=== PATIENT | female | born 1965 | race Caucasian/White ===

== ENCOUNTER 2018-02-25 10:21 | Emergency (ER) | payer BC ==
[~2018-02-25] VITALS: Ht 175.3 cm; Wt 90.0 kg
[~2018-02-25 10:21] MED LIST: AMOXICILLIN500 MG PO; DESYREL50 MG/TAB PO; DIVALPROEX500 MG PO; FLONASE NASAL50 MCG; FLONASE NASAL50 MCG NAS; FLUOXETINE20 MG PO; HYDROCHLOROT25 MG; NO HOME MEDS; PREVACID30 M3 PO; PROZAC20 M1 PO; TOPAMAX100 MG PO; TRAZODONE150 MG PO; VENLAFAXINE37.5 M1 PO; VITAMIN B-625 MG PO; ZYRTEC10 MG PO; [UNRECOGNIZED DRUG - OTHER] PO
[2018-02-25] MEDS ORDERED: LISINOPRIL20 MG PO (10:36)
[2018-02-25] MEDS ORDERED: AMOXICILLIN500 MG PO (10:37)
[2018-02-25 11:21] LABS: HEMATOCRIT 43.2 % (37.0-47.0); HEMOGLOBIN 14.7 g/dl (12.0-16.0); IMMATURE GRANULOCYTES 0.4 % (0.0-1.0); MEAN CELL VOLUME 97.7 fL CALC (80.0-100.0); MEAN CORPUSCULAR HGB 33.3 pG CALC (26.0-32.0); NEUT# 5.73 thou/uL (2.00-7.15); RED BLOOD COUNT 4.42 mill/uL (4.20-5.60); RED CELL DISTRI WIDTH 13.8 % (11.5-15.5)
[2018-02-25] MEDS ORDERED: PREDNISONE10 MG PO (12:41)
[2018-02-25 12:50] VITALS: BP 158/100
== END 2018-02-25 12:50 | disposition home or self-care (01) | DRG 153 ==
LOC: ED 10:21
PROVIDERS: Family Medicine
DX: J30.9 Allergic rhinitis, unspecified (principal); F17.210 Nicotine dependence, cigarettes, uncomplicated; I10 Essential (primary) hypertension

== ENCOUNTER 2020-09-11 09:50 | Emergency (ER) | payer BC ==
[~2020-09-11] VITALS: Ht 175.3 cm; Wt 85.0 kg
[~2020-09-11 09:50] MED LIST changes: +LISINOPRIL20 MG PO; +PREDNISONE10 MG PO
[2020-09-11 12:35] VITALS: BP 138/76
== END 2020-09-11 12:43 | disposition home or self-care (01) | DRG 552 ==
LOC: ED 09:50
DX: M54.5 Low back pain (principal); M79.605 Pain in left leg; I10 Essential (primary) hypertension; F17.200 Nicotine dependence, unspecified, uncomplicated

== ENCOUNTER 2020-12-17 14:08 | Emergency (ER) | payer BC ==
[~2020-12-17] VITALS: Ht 175.3 cm; Wt 100.0 kg
[2020-12-17 15:07] LABS: HEMOGLOBIN 14.2 g/dl (12.0-16.0); IMMATURE GRANULOCYTES 0.5 % (0.0-5.0); MEAN CELL VOLUME 99.5 fL CALC (80.0-100.0); MEAN CORPUSCULAR HGB 32.9 pG CALC (26.0-32.0); NEUT# 5.29 thou/uL (2.00-7.15); RED BLOOD COUNT 4.32 mill/uL (4.20-5.60); RED CELL DISTRI WIDTH 12.9 % (11.5-15.5)
[2020-12-17] MEDS ORDERED: CETIRIZINE10 MG PO (15:09)
[2020-12-17] MEDS ORDERED: PROZAC20 M1 PO (15:09)
[2020-12-17 15:19] LABS: ALBUMIN 4.4 g/dL (3.2-5.0); ALKALINE PHOSPHATASE 78 u/l (38-126); BUN 13 mg/dL (7-17); BUN/CREATININE RATIO 19 (12-20 (CALC)); CARBON DIOXIDE 28 mmol/l (22-30); CHLORIDE 98 mmol/l (95-108); CREATININE 0.7 mg/dL (0.5-1.0); GFR > 60 ML/MIN (>=60 (CALC)); GFR FOR AFR.AMER. > 60 ML/MIN (>=60 (CALC)); TOTAL PROTEIN 7.5 g/dL (6.3-8.2)
[2020-12-17 15:20] LABS: ANION GAP 11 (6-22 (CALC)); BILIRUBIN, TOTAL 0.6 mg/dL (0.0-1.4); SGOT/AST 21 u/l (14-36); SODIUM 133 mmol/l (137-146)
[2020-12-17 16:09] VITALS: BP 130/70
== END 2020-12-17 16:09 | disposition home or self-care (01) | DRG 65 ==
LOC: ED 14:08
PROVIDERS: Family Medicine
DX: I63.9 Cerebral infarction, unspecified (principal); G81.94 Hemiplegia, unspecified affecting left nondominant side; I10 Essential (primary) hypertension; F17.200 Nicotine dependence, unspecified, uncomplicated; R29.703 NIHSS score 3

== ENCOUNTER 2022-01-08 14:33 | Observation (INO) | payer BC ==
[2022-01-08] VITALS (25 sets, daily range): BP systolic 116–155; BP diastolic 53–82
[~2022-01-08] VITALS: Ht 175.3 cm; Wt 110.0 kg
[~2022-01-08 14:33] MED LIST changes: +CETIRIZINE10 MG PO
[2022-01-08 16:49] LABS: HEMATOCRIT 44.9 % (37.0-47.0); HEMOGLOBIN 14.9 g/dl (12.0-16.0); IMMATURE GRANULOCYTES 0.2 % (0.0-5.0); MEAN CELL VOLUME 97.2 fL CALC (80.0-100.0); MEAN CORPUSCULAR HGB 32.3 pG CALC (26.0-32.0); MEAN CORPUSCULAR HGB CONC 33.2 g/dL CAL (32.0-36.0); NEUT# 8.78 thou/uL (2.00-7.15); RED BLOOD COUNT 4.62 mill/uL (4.20-5.60); RED CELL DISTRI WIDTH 13.3 % (11.5-15.5)
[2022-01-08 17:00] LABS: ALBUMIN 4.9 g/dL (3.2-5.0); ALKALINE PHOSPHATASE 89 u/l (38-126); ANION GAP 17 (6-22 (CALC)); BILIRUBIN, TOTAL 0.8 mg/dL (0.0-1.4); BUN 14 mg/dL (7-17); BUN/CREATININE RATIO 23 (12-20 (CALC)); CARBON DIOXIDE 26 mmol/l (22-30); CHLORIDE 100 mmol/l (95-108); CREATININE 0.6 mg/dL (0.5-1.0); GFR > 60 ML/MIN (>=60 (CALC)); GFR FOR AFR.AMER. > 60 ML/MIN (>=60 (CALC)); POTASSIUM 4.1 mmol/l (3.5-5.1); SGOT/AST 26 u/l (14-36); SODIUM 138 mmol/l (137-146); TOTAL PROTEIN 8.6 g/dL (6.3-8.2)
[2022-01-08 18:52] LABS: C-REACTIVE PROTEIN < 0.5 mg/dL (0-0.9); CALCULATED LDLCHOLESTEROL 76 mg/dL (62-129 (CALC)); CHOLESTEROL HDL RATIO 2.2 (<4.4 (CALC)); HDL CHOLESTEROL 77 mg/dL (>=40); MAGNESIUM 1.7 mg/dL (1.6-2.3); TOTAL CHOLESTEROL 170 mg/dl (0-199); TOTAL TRIGLYCERIDES 84 mg/dl (30-149); VLDL CHOLESTROL 17 mg/dl (2-49 (CALC))
[2022-01-09] VITALS (46 sets, daily range): BP systolic 93–145; BP diastolic 51–118
[2022-01-09 05:54] LABS: HEMATOCRIT 40.4 % (37.0-47.0); HEMOGLOBIN 13.4 g/dl (12.0-16.0); MEAN CELL VOLUME 98.8 fL CALC (80.0-100.0); MEAN CORPUSCULAR HGB 32.8 pG CALC (26.0-32.0); MEAN CORPUSCULAR HGB CONC 33.2 g/dL CAL (32.0-36.0); RED BLOOD COUNT 4.09 mill/uL (4.20-5.60); RED CELL DISTRI WIDTH 13.5 % (11.5-15.5)
[2022-01-09 06:20] LABS: ANION GAP 12 (6-22 (CALC)); BUN 14 mg/dL (7-17); BUN/CREATININE RATIO 22 (12-20 (CALC)); CARBON DIOXIDE 29 mmol/l (22-30); CHLORIDE 100 mmol/l (95-108); CREATININE 0.7 mg/dL (0.5-1.0); GFR > 60 ML/MIN (>=60 (CALC)); GFR FOR AFR.AMER. > 60 ML/MIN (>=60 (CALC)); MAGNESIUM 1.9 mg/dL (1.6-2.3); POTASSIUM 3.8 mmol/l (3.5-5.1); SODIUM 137 mmol/l (137-146)
[2022-01-09 07:04] LABS: URINE BILIRUBIN - DIPSTICK NEGATIVE (NEGATIVE); URINE BLOOD DIPSTICK SMALL (NEGATIVE); URINE COLOR YELLOW; URINE GLUCOSE - DIPSTICK NEGATIVE (NEGATIVE); URINE KETONE TRACE mg/dL (NEGATIVE); URINE LEUK ESTERASE NEGATIVE (NEGATIVE); URINE PH 6.5 (4.5-8.0); URINE PROTEIN - DIPSTICK NEGATIVE (NEG-TRACE); URINE UROBILINOGEN - DIPSTICK 0.2 E.U./dL (0.2)
[2022-01-09 07:42] LABS: URINE NITRITE - DIPSTICK NEGATIVE (Negative)
[2022-01-09 07:50] LABS: URINE SQUAMOUS EPITHELIAL CELL FEW EPI/hpf (0-FEW); URINE WBC 0-2 WBC/hpf (0-5)
[2022-01-09] MEDS ORDERED: ATORVASTATIN CA40 MG PO (08:47)
[2022-01-09] MEDS ORDERED: FLUOXETINE HCL40 MG PO (08:48)
[2022-01-09] MEDS ORDERED: SG ASA LOW81 M1 PO (08:49)
[2022-01-09] MEDS ORDERED: LISINOP/HCTZ1 TA2 PO (09:06)
[2022-01-09] MEDS ORDERED: OXYBUTYNIN CHLOR5 M1 PO (09:07)
[2022-01-09] MEDS ORDERED: TRAZODONE100 MG PO (09:07)
[2022-01-09] MEDS ORDERED: AZELASTINE HCL0.1 % (09:08)
[2022-01-09] MEDS ORDERED: GABAPENTIN300 M2 PO (09:10)
== END 2022-01-09 14:35 | disposition home or self-care (01) | DRG 92 ==
LOC: ED 14:33 → ED-I 18:06 → ED 18:26 → ICU 18:27
PROVIDERS: Family Medicine; ADMIT Hospitalist; ATTEND Hospitalist
DX: R47.81 Slurred speech (principal); I10 Essential (primary) hypertension; I69.354 Hemiplegia and hemiparesis following cerebral infarction affecting left non-dominant side; I69.393 Ataxia following cerebral infarction; E78.5 Hyperlipidemia, unspecified; M19.90 Unspecified osteoarthritis, unspecified site; F41.9 Anxiety disorder, unspecified; F32.A Depression, unspecified; F17.200 Nicotine dependence, unspecified, uncomplicated; Z20.822 Contact with and (suspected) exposure to COVID-19
CPT/HCPCS: Q9967

== ENCOUNTER 2022-04-09 07:05 | Day surgery (SDC) | payer BC ==
[~2022-04-09] VITALS: Ht 175.3 cm; Wt 88.9 kg
[~2022-04-09 07:05] MED LIST changes: +ATORVASTATIN CA40 MG PO; +AZELASTINE HCL0.1 %; +FLUOXETINE HCL40 MG PO; +GABAPENTIN300 M2 PO; +LISINOP/HCTZ1 TA2 PO; +OXYBUTYNIN CHLOR5 M1 PO; +SG ASA LOW81 M1 PO; +TRAZODONE100 MG PO
[2022-04-09 13:52] VITALS: BP 150/68
== END 2022-04-09 08:52 | disposition home or self-care (01) | DRG 552 ==
LOC: ORM 07:05
PROVIDERS: ATTEND Physical Medicine & Rehabilitation
DX: M47.816 Spondylosis without myelopathy or radiculopathy, lumbar region (principal); G89.4 Chronic pain syndrome; S22.080S Wedge compression fracture of T11-T12 vertebra, sequela; M62.838 Other muscle spasm

== ENCOUNTER 2022-05-21 08:57 | Day surgery (SDC) | payer BC ==
[~2022-05-21] VITALS: Ht 175.3 cm; Wt 88.5 kg
[2022-05-21 12:03] VITALS: BP 131/54
== END 2022-05-21 12:25 | disposition home or self-care (01) | DRG 552 ==
LOC: ORM 08:57
PROVIDERS: ATTEND Physical Medicine & Rehabilitation
DX: M47.816 Spondylosis without myelopathy or radiculopathy, lumbar region (principal); G89.4 Chronic pain syndrome

== ENCOUNTER 2022-06-04 07:16 | Day surgery (SDC) | payer BC ==
[~2022-06-04] VITALS: Ht 175.3 cm; Wt 88.5 kg
[~2022-06-04 07:16] MED LIST changes: +CBD GUMMIES PO
[2022-06-04 09:45] VITALS: BP 127/67
== END 2022-06-04 09:46 | disposition home or self-care (01) | DRG 552 ==
LOC: ORM 07:16
PROVIDERS: ATTEND Physical Medicine & Rehabilitation
DX: M47.816 Spondylosis without myelopathy or radiculopathy, lumbar region (principal)

== ENCOUNTER 2022-06-18 12:29 | Emergency (ER) | payer OTHER, BC ==
[~2022-06-18] VITALS: Ht 175.3 cm; Wt 88.6 kg
[2022-06-18] MEDS ORDERED: NAPROXEN500 MG PO (13:44)
[2022-06-18] MEDS ORDERED: METHOCARBAMOL500 MG PO (13:44)
[2022-06-18 14:54] VITALS: BP 128/68
[2022-06-19] MEDS ORDERED: AMOXICILLIN500 MG PO (12:07)
== END 2022-06-18 14:54 | disposition home or self-care (01) | DRG 552 ==
LOC: ED 12:29
DX: S16.1XXA Strain of muscle, fascia and tendon at neck level, initial encounter (principal); S00.81XA Abrasion of other part of head, initial encounter; I10 Essential (primary) hypertension; F17.200 Nicotine dependence, unspecified, uncomplicated; V43.52XA Car driver injured in collision with other type car in traffic accident, initial encounter; Z86.73 Personal history of transient ischemic attack (TIA), and cerebral infarction without residual deficits

== ENCOUNTER 2022-06-19 09:45 | Emergency (ER) | payer BC ==
[~2022-06-19] VITALS: Ht 172.7 cm; Wt 90.0 kg
[~2022-06-19 09:45] MED LIST changes: +METHOCARBAMOL500 MG PO; +NAPROXEN500 MG PO
[2022-06-19 09:48] VITALS: BP 129/68
[2022-06-19 10:01] VITALS: BP 117/67
[2022-06-19 10:30] VITALS: BP 110/70
[2022-06-19 11:01] VITALS: BP 121/65
[2022-06-19 11:31] VITALS: BP 102/70
[2022-06-19 12:01] VITALS: BP 112/61
[2022-06-19] MEDS ORDERED: AMOXICILLIN500 MG PO (12:07)
== END 2022-06-19 12:31 | disposition home or self-care (01) | DRG 605 ==
LOC: ED 09:45
PROC: 0HQ0XZZ Repair Scalp Skin, External Approach (ICD-10-PCS; principal; 2022-06-19)
DX: S01.01XA Laceration without foreign body of scalp, initial encounter (principal); I10 Essential (primary) hypertension; F32.A Depression, unspecified; G62.9 Polyneuropathy, unspecified; F17.210 Nicotine dependence, cigarettes, uncomplicated; W01.0XXA Fall on same level from slipping, tripping and stumbling without subsequent striking against object, initial encounter; Y93.89 Activity, other specified; Y92.008 Other place in unspecified non-institutional (private) residence as the place of occurrence of the external cause; Z86.73 Personal history of transient ischemic attack (TIA), and cerebral infarction without residual deficits

== ENCOUNTER 2022-07-09 08:36 | Emergency (ER) | payer OTHER, BC ==
[~2022-07-09] VITALS: Ht 172.7 cm; Wt 88.6 kg
[2022-07-09 09:06] VITALS: BP 112/68
== END 2022-07-09 09:25 | disposition home or self-care (01) | DRG 950 ==
LOC: ED 08:36
DX: S01.91XD Laceration without foreign body of unspecified part of head, subsequent encounter (principal); I10 Essential (primary) hypertension; G62.9 Polyneuropathy, unspecified; F32.A Depression, unspecified; F17.210 Nicotine dependence, cigarettes, uncomplicated; X58.XXXD Exposure to other specified factors, subsequent encounter; Z86.73 Personal history of transient ischemic attack (TIA), and cerebral infarction without residual deficits

== ENCOUNTER 2022-08-25 11:13 | Inpatient (IN) | payer BC ==
[2022-08-25] VITALS (27 sets, daily range): BP systolic 88–155; BP diastolic 40–93
[~2022-08-25] VITALS: Ht 172.7 cm; Wt 89.0 kg
--- NOTE | 2022-08-25 11:13 | NUR ---
PT TO ROOM VIA WC
--- NOTE | 2022-08-25 11:21 | NUR ---
STROKE ALERT CALLED AT THIS TIME
--- NOTE | 2022-08-25 11:30 | NUR ---
PT UNABLE TO RECALL ALL MEDS. STATES SHE TAKES ASA DAILY
[2022-08-25 11:43] LABS: HEMATOCRIT 37.9 % (37.0-47.0); HEMOGLOBIN 12.9 g/dl (12.0-16.0); IMMATURE GRANULOCYTES 0.2 % (0.0-5.0); MEAN CELL VOLUME 95.9 fL CALC (80.0-100.0); MEAN CORPUSCULAR HGB 32.7 pG CALC (26.0-32.0); NEUT# 7.95 thou/uL (2.00-7.15); RED BLOOD COUNT 3.95 mill/uL (4.20-5.60); RED CELL DISTRI WIDTH 12.7 % (11.5-15.5)
--- NOTE | 2022-08-25 12:00 | NUR ---
Reassessment of patient completed. No distress noted.
[2022-08-25 12:03] LABS: PROTHROMBIN TIME 10.4 SECONDS (9.0-12.5)
[2022-08-25 12:03] LABS: ALBUMIN 4.5 g/dL (3.2-5.0); ALKALINE PHOSPHATASE 78 u/l (38-126); ANION GAP 14 (6-22 (CALC)); BILIRUBIN, TOTAL 0.5 mg/dL (0.0-1.4); BUN 17 mg/dL (7-17); BUN/CREATININE RATIO 26 (12-20 (CALC)); CARBON DIOXIDE 25 mmol/l (22-30); CHLORIDE 100 mmol/l (95-108); CREATININE 0.6 mg/dL (0.5-1.0); GFR FOR AFR.AMER. > 60 ML/MIN (>=60 (CALC)); GFR OTHER RACES > 60 ML/MIN (>=60 (CALC)); POTASSIUM 3.9 mmol/l (3.5-5.1); SGOT/AST 23 u/l (14-36); SODIUM 135 mmol/l (137-146)
--- NOTE | 2022-08-25 13:00 | NUR ---
Reassessment of patient completed. No distress noted.
--- NOTE | 2022-08-25 14:30 | NUR ---
RC'D REPORT FROM ITZEL ERNST, BROUGHT PT UP TO ICU AND CONVERSED WITH PT ABOUT SITUATION, PT STATES "I HAD A STROKE 2 YEARS AGO, AND ONLY HAD GENERALIZED WEAKNESS A DEFICIT. THIS MORNING I FELT MORE WEAK THAN NORMAL AND FELL BACKWARDS, MY TALKING IS ALSO NOT NORMAL." PT DENIES HITTING HEAD OR LOC DURING FALL, PT WEARS A "DIAPER" AT HOME DUE TO ACCIDENTS FROM NOT BEING ABLE TO MAKE IT TO THE BATHROOM "FAST ENOUGH," PLACED ON [place], PT TRANSFERRED FROM STRETCHER TO BED MAX 2 PERSON ASSIST, RESPIRATIONS UNLABORED AND EVEN, BED IN LOWEST POSITION, CALL LIGHT IN BED WITH PT, WILL CONTINUE TO MONITOR.
--- NOTE | 2022-08-25 14:31 | NUR ---
BEDSIDE REPORT GIVEN TO ARIELLA AT THIS TIME. PT TO ICU
--- NOTE | 2022-08-25 15:05 | NUR ---
sPEECH PATHOLOGIST AT BEDSIDE, BEDSIDE SWALLOW EVAL COMPLETED AND PASSED.
[2022-08-25 16:23] LABS: URINE BILIRUBIN - DIPSTICK NEGATIVE (NEGATIVE); URINE BLOOD DIPSTICK TRACE-INTACT (NEGATIVE); URINE COLOR YELLOW; URINE GLUCOSE - DIPSTICK NEGATIVE (NEGATIVE); URINE KETONE TRACE mg/dL (NEGATIVE); URINE LEUK ESTERASE NEGATIVE (NEGATIVE); URINE PROTEIN - DIPSTICK NEGATIVE (NEG-TRACE); URINE SPECIFIC GRAVITY <=1.005; URINE UROBILINOGEN - DIPSTICK 0.2 E.U./dL (0.2)
[2022-08-25 16:25] LABS: URINE NITRITE - DIPSTICK NEGATIVE (Negative)
--- NOTE | 2022-08-25 18:58 | NUR ---
ASSUMED CARE OF PT FROM ITZEL KRISHNAN. VSS, NO S/S OF DISTRESS NOTED, PT DENIES ANY CURRENT NEEDS
--- NOTE | 2022-08-25 20:52 | NUR ---
PT MEDICATED PER EMAR. VSS, NO S/S OF DISTRESS NOTED, DENIES NEEDS, OR PAIN
[2022-08-26] VITALS (38 sets, daily range): BP systolic 76–126; BP diastolic 35–75
--- NOTE | 2022-08-26 | NUR ---
No neuro changes noted, no s/s of distress noted.
--- NOTE | 2022-08-26 05:09 | NUR ---
Lab at bedside for am draw
[2022-08-26 05:46] LABS: ANION GAP 14 (6-22 (CALC)); BUN 13 mg/dL (7-17); BUN/CREATININE RATIO 15 (12-20 (CALC)); CALCULATED LDLCHOLESTEROL 79 mg/dL (62-129 (CALC)); CARBON DIOXIDE 27 mmol/l (22-30); CHLORIDE 102 mmol/l (95-108); CHOLESTEROL HDL RATIO 3.1 (<4.4 (CALC)); CREATININE 0.8 mg/dL (0.5-1.0); GFR FOR AFR.AMER. > 60 ML/MIN (>=60 (CALC)); GFR OTHER RACES > 60 ML/MIN (>=60 (CALC)); HDL CHOLESTEROL 45 mg/dL (>=40); POTASSIUM 4.1 mmol/l (3.5-5.1); SODIUM 139 mmol/l (137-146); TOTAL CHOLESTEROL 140 mg/dl (0-199); TOTAL TRIGLYCERIDES 79 mg/dl (30-149); VLDL CHOLESTROL 16 mg/dl (2-49 (CALC))
--- NOTE | 2022-08-26 08:00 | NUR ---
RC'D REPORT FROM ADRIAN, PT AWAKE AND WATCHING TV IN BED, PT SEEMS AND STATES SHE "FEELS STRONGER TODAY," PT ON ROOM AIR AND NONLABORED, PT HAVING GOOD URINARY OUTPUT, DOES COMPLAIN OF SOME SHOULDER ACHING FROM HER FALL YESTERDAY NOTIFIED, BED IN LOWEST POSITION, CALL LIGHT IN BED, WILL CONTINUE TO MONITOR.
--- NOTE | 2022-08-26 09:44 | NUR ---
Patient to mri by wheelchair
--- NOTE | 2022-08-26 10:00 | NUR ---
PT IN MRI
--- NOTE | 2022-08-26 12:00 | NUR ---
PT IN BED EATING LUNCH, CONVERSING WITH PARTNER WHO IS AT BEDSIDE, DENIES ANY PAIN/CHEST PAIN/SOB, PT IS IN A HAPPY AND POSITIVE MOOD, BED IN LOWEST POSITION, CALL LIGHT AT BEDSIDE, WILL CONTINUE TO MONITOR.
--- NOTE | 2022-08-26 19:00 | NUR ---
ASSUMED CARE OF PT. PT RESTING IN BED, NO S/S OF DISTRESS NOTED, SPOUSE VISITING AT BEDSIDE. DENIES NEEDS
--- NOTE | 2022-08-26 20:20 | NUR ---
MEDICATED PER EMAR. VSS, HELD TRAZADONE, PT STATES MAKES HER TO GROGGY, AND THAT SHE DOESNT TAKE THAT ANYMORE.
--- NOTE | 2022-08-26 21:20 | NUR ---
NOTIFIED MD OF HYPOTENSION. ORDER FOR 500ML NS BOLUS SENT TO PHARMACY.
--- NOTE | 2022-08-26 22:35 | NUR ---
DUNG MD OF POST BOLUS HYPOTENSION. CONTINOUS IV FLUID ORDERED AND INITIATED.
[2022-08-27] VITALS (38 sets, daily range): BP systolic 59–127; BP diastolic 31–78
--- NOTE | 2022-08-27 02:00 | NUR ---
NOTIFIED MD OF HYPOTENSION. MEDICATED PER EMAR. PT DENIES ANY S/S.
--- NOTE | 2022-08-27 04:00 | NUR ---
PT DENIES ANY NEEDS
--- NOTE | 2022-08-27 08:22 | NUR ---
PT ALERT AND ORIENTED X 3. PT REPOSITIONED IN BED FOR BREAKFAST, SEEN ABLE TO FEED HERSELF.
--- NOTE | 2022-08-27 10:30 | NUR ---
PT SEEN BY DR BARNES THIS MORNING, TO BE DISCHARGED LATER THIS MORNING. PT WITHOUT CHANGE IN STATUS. SIGNIFICANT OTHER AT BEDSIDE.
[2022-08-27] MEDS ORDERED: PLAVIX75 MG PO (10:41)
[2022-08-27] MEDS ORDERED: TRAMADOL HCL50 MG PO (11:02)
--- NOTE | 2022-08-27 12:25 | NUR ---
PT HAS BEEN DISCHARGED TO HOME. PT VERBALIZED UNDERSTANDING OF DC INSTRUCTIONS, TAKEN BY WHEELCHAIR TO VEHICLE. PT [facility]AV[facility].
== END 2022-08-27 11:45 | disposition home or self-care (01) | DRG 69 ==
LOC: ED 11:13 → ED-I 12:55 → ED 12:55 → ICU 14:11
PROVIDERS: Family Medicine; ADMIT Internal Medicine; ATTEND Internal Medicine
DX: G45.9 Transient cerebral ischemic attack, unspecified (principal); I69.354 Hemiplegia and hemiparesis following cerebral infarction affecting left non-dominant side; I10 Essential (primary) hypertension; I69.322 Dysarthria following cerebral infarction; F32.A Depression, unspecified; G62.9 Polyneuropathy, unspecified; M19.90 Unspecified osteoarthritis, unspecified site; F17.200 Nicotine dependence, unspecified, uncomplicated; Z20.822 Contact with and (suspected) exposure to COVID-19
CPT/HCPCS: J1650; Q9967

== ENCOUNTER 2023-04-14 07:50 | Emergency (ER) | payer BC ==
[~2023-04-14] VITALS: Ht 172.7 cm; Wt 56.6 kg
[2023-04-14] VITALS (7 sets, daily range): BP systolic 115–134; BP diastolic 60–109
[~2023-04-14 07:50] MED LIST changes: +PLAVIX75 MG PO; +TRAMADOL HCL50 MG PO
[2023-04-14 08:36] LABS: BASO% 0.5 % (0-3); EOS% 1.6 % (0-8); HEMATOCRIT 41.3 % (37.0-47.0); HEMOGLOBIN 13.6 g/dl (12.0-16.0); IMMATURE GRANULOCYTES 0.1 % (0.0-5.0); LYMPH% 20.5 % (15-41); MEAN CELL VOLUME 95.2 fL CALC (80.0-100.0); MEAN CORPUSCULAR HGB 31.3 pG CALC (26.0-32.0); MEAN CORPUSCULAR HGB CONC 32.9 g/dL CAL (32.0-36.0); MONO% 7.8 % (2-13); NEUT# 5.5 thou/uL (2.00-7.15); NEUT% 69.5 % (42-76); RED BLOOD COUNT 4.34 mill/uL (4.20-5.60); RED CELL DISTRI WIDTH 12.7 % (11.5-15.5)
[2023-04-14 08:38] LABS: URINE BILIRUBIN - DIPSTICK NEGATIVE (NEGATIVE); URINE BLOOD DIPSTICK NEGATIVE (NEGATIVE); URINE COLOR YELLOW; URINE GLUCOSE - DIPSTICK NEGATIVE (NEGATIVE); URINE KETONE NEGATIVE (NEGATIVE); URINE LEUK ESTERASE NEGATIVE (NEGATIVE); URINE PROTEIN - DIPSTICK NEGATIVE (NEG-TRACE); URINE SPECIFIC GRAVITY 1.015
[2023-04-14 08:39] LABS: ALBUMIN 4.6 g/dL (3.2-5.0); ALKALINE PHOSPHATASE 76 u/l (38-126); ANION GAP 13 (6-22 (CALC)); BILIRUBIN, TOTAL 0.4 mg/dL (0.02-1.3); BUN 22 mg/dL (7-17); BUN/CREATININE RATIO 34 (12-20 (CALC)); CARBON DIOXIDE 27 mmol/l (22-30); CHLORIDE 102 mmol/l (95-108); CREATININE 0.7 mg/dL (0.5-1.0); GFR FOR AFR.AMER. > 60 ML/MIN (>=60 (CALC)); GFR OTHER RACES > 60 ML/MIN (>=60 (CALC)); POTASSIUM 4.5 mmol/l (3.5-5.1); SGOT/AST 23 u/l (14-36); SODIUM 138 mmol/l (137-146); TOTAL PROTEIN 7.6 g/dL (6.3-8.2)
[2023-04-14 08:41] LABS: URINE NITRITE - DIPSTICK NEGATIVE (Negative)
[2023-04-14] MEDS ORDERED: BAYER CHEWABLE81 MG PO (08:41)
[2023-04-14] MEDS ORDERED: TRAMADOL HCL50 MG PO (08:43)
== END 2023-04-14 10:15 | disposition home or self-care (01) | DRG 948 ==
LOC: ED 07:50
PROVIDERS: Family Medicine
DX: R53.1 Weakness (principal); I10 Essential (primary) hypertension; E78.5 Hyperlipidemia, unspecified; F17.200 Nicotine dependence, unspecified, uncomplicated; I69.922 Dysarthria following unspecified cerebrovascular disease; I69.993 Ataxia following unspecified cerebrovascular disease; Z20.822 Contact with and (suspected) exposure to COVID-19